=== PATIENT | male | born 1980 | race Caucasian/White ===

== ENCOUNTER → 2018-02-01 | Outpatient (CLI) | payer BC ==
[2018-02-01 15:22] LABS: ADD MAN DIFF? NO
[2018-02-01 15:27] LABS: BASO % 1 % (0-3); EOS # 0.1 x10^3/uL (0.0-0.7); EOS % 3 % (0-3); HEMATOCRIT 31.9 % (39.0-53.0); HEMOGLOBIN 10.8 g/dL (13.0-17.5); LYMPH # 2.6 x10^3/uL (1.0-4.8); LYMPH % 52 % (24-48); MEAN CORPUSCULAR HEMOGLOBIN 26 pg (25-35); MEAN CORPUSCULAR HGB CONC 34 g/dL (31-37); MEAN CORPUSCULAR VOLUME 75 fL (79-100); MONO # 0.5 x10^3/uL (0.0-1.1); MONO % 10 % (0-9); NEUT # 1.7 x10^3uL (1.8-7.7); NEUT % 35 % (31-73); PLATELET COUNT 191 x10^3/uL (140-400); RED BLOOD COUNT 4.24 x10^6/uL (4.30-5.70)
[2018-02-01 16:06] LABS: ALBUMIN 3.7 g/dL (3.4-5.0); ALBUMIN/GLOBULIN RATIO 1.1 (1.0-1.7); ALK PHOS 74 U/L (46-116); ALT (SGPT) 328 U/L (16-63); ANION GAP 10 (6-14); AST (SGOT) 99 U/L (15-37); BLOOD UREA NITROGEN 20 mg/dL (8-26); BUN/CREATININE RATIO 20 (6-20); CALCIUM 8.5 mg/dL (8.5-10.1); CARBON DIOXIDE 25 mmol/L (21-32); CHLORIDE 105 mmol/L (98-107); GFR 83.2; GLUCOSE 121 mg/dL (70-99); POTASSIUM 3.9 mmol/L (3.5-5.1); SODIUM 140 mmol/L (136-145); TOTAL BILIRUBIN 0.5 mg/dL (0.2-1.0); TOTAL PROTEIN 7.2 g/dL (6.4-8.2)
[2018-02-02 09:23] LABS: MRSA BY PCR Negative (Negative)
== END | disposition home or self-care (01) ==
LOC: SURGPAT 14:19
DX: Z01.818 Encounter for other preprocedural examination (principal); M51.26 Other intervertebral disc displacement, lumbar region
CPT/HCPCS: 36415; 80053; 85025; 87641

== ENCOUNTER → 2018-02-06 | Day surgery (SDC) | payer BC ==
[~2018-02-06] MED LIST: DESFLURANE > 120 MINUTES IH; DEXAMETHASONE SOD PHOS 20 MG/5 ML VIAL.; GLYCOPYRROLATE 1 MG/5 ML VIAL.; KETOROLAC 30 MG/ML INJ FOR OR. INJ; MORPHINE SULFATE 4 MG/ML DISP.SYRIN. IV; ONDANSETRON PF 4 MG/2 ML VIAL.; ONDANSETRON PF 4 MG/2 ML VIAL. IV; PHENYLEPHRINE 10 MG/ML VIAL.; PHENYLEPHRINE in 0.9% NACL PF 1 MG/10 ML SYRINGE. IV; PROCHLORPERAZINE 10 MG/2 ML VIAL. IV; PROPOFOL 20 ML IV; PROPOFOL 50 ML IV; REMIFENTANIL 2 MG VIAL. IV; ROCURONIUM 50 MG/5 ML VIAL.; ceFAZolin 2GM PREMIX 2 GM/50 ML BAG IV; fentaNYL PF VIAL 100 MCG/2 ML VIAL; fentaNYL PF VIAL 100 MCG/2 ML VIAL IV; traMADol 50 MG TABLET
[2018-02-06] MEDS: IV RINGERS,LACTATED 1000ML 1,000 ML IV (10:39)
[2018-02-06 10:49] LABS: AST (SGOT) 42 U/L (15-37)
[2018-02-06 10:49] LABS: ALT (SGPT) 155 U/L (16-63)
[2018-02-06] MEDS: BUPIVAC MPF-EPI 0.5%-1:200000 30 ML VIAL. INJ (12:58)
[2018-02-06] MEDS: KETOROLAC 60 MG/2 ML INJ FOR OR. (12:58)
[2018-02-06] MEDS: BACITRACIN 50,000 UNIT in IV NORMAL SALINE 1000ML BAG 1,000 ML IRR (12:58)
[2018-02-06] MEDS: GELATIN SPONGE SIZE 100. (12:58)
[2018-02-06] MEDS: THROMBIN TOPICAL 20,000 UNIT SPRAY.SYRN KIT TP (12:58)
[2018-02-06] MEDS: LIDOCAINE 1% PF 2 ML VIAL. ID (14:54)
[2018-02-06] MEDS: fentaNYL PF VIAL 100 MCG/2 ML VIAL IV (14:59)
[2018-02-06] MEDS: traMADol 50 MG TABLET PO (15:41)
== END | disposition home or self-care (01) ==
LOC: SURG 09:57
DX: M51.16 Intervertebral disc disorders with radiculopathy, lumbar region (principal); Z79.899 Other long term (current) drug therapy; Z72.89 Other problems related to lifestyle; K21.9 Gastro-esophageal reflux disease without esophagitis; K08.409 Partial loss of teeth, unspecified cause, unspecified class
CPT/HCPCS: 36415; 76000; 84450; 84460; 88304; 88311; 97162-GP; 97530-GP; A7015; G8978-CJ-GP; G8979-CJ-GP; G8980-CJ-GP; J0690; J1100; J1885; J2370; J2405; J2704; J3010; J3490; J7030; J7120

== ENCOUNTER → 2018-06-12 | Outpatient (CLI) | payer BC ==
[2018-02-06 15:42] VITALS: BP 125/86
[~2018-06-12] MED LIST changes: +ACET500T68 PO; +CYCL10TA2 PO; -DESFLURANE > 120 MINUTES IH; -DEXAMETHASONE SOD PHOS 20 MG/5 ML VIAL.; +DIAZ5TAB4 PO; +DOCU-109 PO; -GLYCOPYRROLATE 1 MG/5 ML VIAL.; +HYDR-971 PO; +IBUP-1027 PO; -KETOROLAC 30 MG/ML INJ FOR OR. INJ; -MORPHINE SULFATE 4 MG/ML DISP.SYRIN. IV; +OMEP40CA5 PO; -ONDANSETRON PF 4 MG/2 ML VIAL.; -ONDANSETRON PF 4 MG/2 ML VIAL. IV; +OXYC-323 PO; -PHENYLEPHRINE 10 MG/ML VIAL.; -PHENYLEPHRINE in 0.9% NACL PF 1 MG/10 ML SYRINGE. IV; -PROCHLORPERAZINE 10 MG/2 ML VIAL. IV; -PROPOFOL 20 ML IV; -PROPOFOL 50 ML IV; -REMIFENTANIL 2 MG VIAL. IV; -ROCURONIUM 50 MG/5 ML VIAL.; +TRAM50TA PO; -ceFAZolin 2GM PREMIX 2 GM/50 ML BAG IV; -fentaNYL PF VIAL 100 MCG/2 ML VIAL; -fentaNYL PF VIAL 100 MCG/2 ML VIAL IV; -traMADol 50 MG TABLET
[2018-06-12 14:56] LABS: BASO % 1 % (0-3); EOS # 0.3 x10^3/uL (0.0-0.7); EOS % 5 % (0-3); HEMATOCRIT 36.7 % (39.0-53.0); HEMOGLOBIN 12.4 g/dL (13.0-17.5); LYMPH # 2.6 x10^3/uL (1.0-4.8); LYMPH % 41 % (24-48); MEAN CORPUSCULAR HEMOGLOBIN 25 pg (25-35); MEAN CORPUSCULAR HGB CONC 34 g/dL (31-37); MEAN CORPUSCULAR VOLUME 73 fL (79-100); MONO # 0.5 x10^3/uL (0.0-1.1); MONO % 8 % (0-9); NEUT # 2.8 x10^3uL (1.8-7.7); NEUT % 46 % (31-73); PLATELET COUNT 246 x10^3/uL (140-400); RED BLOOD COUNT 5.04 x10^6/uL (4.30-5.70); RED CELL DISTRIBUTION WIDTH 18.2 % (11.5-14.5); WHITE BLOOD COUNT 6.2 x10^3/uL (4.0-11.0)
[2018-06-12 15:16] LABS: ALBUMIN 3.8 g/dL (3.4-5.0); ALBUMIN/GLOBULIN RATIO 1.1 (1.0-1.7); CALCIUM 8.6 mg/dL (8.5-10.1); CREATININE 1.2 mg/dL (0.7-1.3); GFR 67.1; POTASSIUM 3.9 mmol/L (3.5-5.1); TOTAL BILIRUBIN 0.3 mg/dL (0.2-1.0); TOTAL PROTEIN 7.3 g/dL (6.4-8.2)
== END | disposition home or self-care (01) ==
LOC: SURGPAT 14:14
PROVIDERS: ATTEND Neurological Surgery
DX: Z01.818 Encounter for other preprocedural examination (principal); M51.26 Other intervertebral disc displacement, lumbar region
CPT/HCPCS: 36415; 80053; 85025; 87641

== ENCOUNTER 2018-06-15 06:45 | Day surgery (SDC) | payer BC ==
--- NOTE | 2018-06-14 15:28 | PREOP HP ---
DATE OF SERVICE: Yoan Dailey dictating for Dr. Navi Centeno. DATE OF SURGERY: 06/15/2018. HISTORY OF PRESENT ILLNESS: The patient is a 38-year-old who underwent surgery in February for herniated lumbar disk at L5-S1 on the right. He did well from that surgery. His pain resolved both in his back and his leg. Then, a few months ago, he developed an episode of severe back pain, which responded to Medrol Dosepak. He was again pain free and did well until several days ago after lifting a laundry basket, he developed, extremely severe lower back pain and pain which radiated to the right buttock. He noted pain in his right inguinal region as well. He was unable to walk because the pain was so severe, and he was seen in the Emergency Room and given Percocet and Valium. An MRI scan has been done. He did not notice significant pain in his legs, although he tries to lift his right leg, he develops excruciating pain in his back and buttock. He does not notice weakness in his lower extremities. He does have no numbness in his legs or feet. PAST MEDICAL HISTORY: None noted. PAST SURGICAL HISTORY: Lumbar microdiskectomy L5-S1 in 02/2018. FAMILY HISTORY: Noncontributory. 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 . Rarely exercises. Denies substance abuse. Denies tobacco use. Drinks alcohol 1-2 times per week. Drinks coffee and soda daily. ALLERGIES: No known drug allergies. CURRENT MEDICATIONS: Medrol, omeprazole, ibuprofen, prednisone, Percocet, Valium. REVIEW OF SYSTEMS: A 12-point review of systems was obtained and is noncontributory except for that mentioned above. PHYSICAL EXAMINATION: NEUROSURGERY EXAMINATION: GENERAL APPEARANCE: Alert, pleasant, in mild distress because of back pain. HEAD: Normocephalic and atraumatic. SKIN: Warm and dry. BACK: Well-healed lumbar incision. MUSCULOSKELETAL: Lumbar paraspinal muscle bulk is normal, restricted range of motion of the lumbar spine. Normal range of motion of the lower extremities bilaterally. Palpation of the back was not associated with severe tenderness. There is moderate tenderness of lower lumbar spine to the right side of midline. EXTREMITIES: No clubbing, cyanosis or edema. NEUROLOGIC: Alert and oriented x 3, normal recent and remote memory, strength 5/5 in upper and lower extremities bilaterally. On sensory testing, it is intact to light touch in the upper and lower extremity bilaterally, and reflexes were 1+ and symmetric. Straight leg raising on the right at 20 degrees was associated with severe back and right buttock pain, relieved by Lasegue maneuver. Straight leg raising on the left at about 40 degrees, was associated with severe right buttock pain and right-sided back pain, antalgic gait. IMAGING: Reviewed. I reviewed a lumbar MRI scan from yesterday. On that study, the abnormalities are seen at L5-S1 with a nonenhancing moderate sized broad based right focal disk protrusion which is compressing on the right S1 nerve root. ASSESSMENT: Intervertebral disk disorder with radiculopathy, lumbosacral region. PLAN: I spoke with the patient about treatment options. He is experiencing severe pain requiring Percocet and Valium. He had difficulty with virtually any activity. There is a recurrent disk herniation with nerve root compression on the right L5-S1. I discussed with him treatment options, which included physical therapy, epidural steroid injections and reoperation. At this point, because of the severe pain, he would strongly like to go ahead with lumbar microsurgery. He understands the surgery and the risks. I explained to him at this point that I would perform a simple micro lumbar decompressive surgery and non instrumented fusion. He understands. He would like to go ahead. We will make the arrangements. NAVI CENTENO MD DR: CALEB/troy JOB#: [id number] / [id number]
[~2018-06-15] VITALS: Ht 182.9 cm; Wt 95.3 kg
[~2018-06-15 06:45] MED LIST changes: +BACITRACIN 50,000 UNIT in IV NORMAL SALINE 1000ML BAG 1,000 ML IRR ONE; +BUPIVAC MPF-EPI 0.5%-1:200000 30 ML VIAL. ONE; -DOCU-109 PO; +GELATIN SPONGE SIZE 100. ONE; -HYDR-971 PO; +KETOROLAC 60 MG/2 ML INJ FOR OR. ONE; +THROMBIN TOPICAL 20,000 UNIT SPRAY.SYRN KIT TP ONE
[2018-06-15] MEDS ORDERED: ONDANSETRON PF 4 MG/2 ML VIAL. IV PRN (07:00)
[2018-06-15] MEDS ORDERED: LIDOCAINE 1% PF 2 ML VIAL. ID PRN (07:00)
[2018-06-15] MEDS ORDERED: fentaNYL PF VIAL 100 MCG/2 ML VIAL IV PRN (07:00)
[2018-06-15] MEDS ORDERED: PROCHLORPERAZINE 10 MG/2 ML VIAL. IV PRN (07:00)
[2018-06-15] MEDS ORDERED: MORPHINE SULFATE 2 MG/ML VIAL. IV PRN (07:00)
[2018-06-15] MEDS ORDERED: HYDROmorphone 2 MG/ML VIAL IV PRN (07:00)
[2018-06-15] MEDS: IV RINGERS,LACTATED 1000ML 1,000 ML IV SCH ×2 (07:44→11:27)
[2018-06-15] MEDS ORDERED: PROPOFOL 20 ML IV ONE (08:08)
[2018-06-15] MEDS ORDERED: ONDANSETRON PF 4 MG/2 ML VIAL. ONE (08:08)
[2018-06-15] MEDS ORDERED: ROCURONIUM 50 MG/5 ML VIAL. ONE (08:08)
[2018-06-15] MEDS ORDERED: DEXAMETHASONE SOD PHOS 20 MG/5 ML VIAL. ONE (08:08)
[2018-06-15] MEDS ORDERED: PHENYLEPHRINE 10 MG/ML VIAL. ONE (08:08)
[2018-06-15] MEDS ORDERED: MIDAZOLAM HCL/PF 2 MG/2 ML VIAL. ONE (08:08)
[2018-06-15] MEDS ORDERED: PROPOFOL 50 ML IV ONE ×2 (08:08→09:55)
[2018-06-15] MEDS ORDERED: REMIFENTANIL 2 MG VIAL. IV ONE (08:09)
[2018-06-15] MEDS ORDERED: 0.9 % SODIUM CHLORIDE 20 ML VIAL. IJ ONE ×2 (08:09)
[2018-06-15] MEDS ORDERED: DESFLURANE > 120 MINUTES IH ONE (08:28)
[2018-06-15] MEDS ORDERED: GLYCOPYRROLATE 1 MG/5 ML VIAL. ONE ×2 (09:08→09:11)
[2018-06-15] MEDS ORDERED: NEOSTIGMINE METHYLSULFATE 5 MG/5 ML SYRINGE. ONE (11:09)
--- NOTE | 2018-06-15 11:16 | DISCH ---
DISCHARGE INSTRUCTIONS Condition on Discharge Condition on Discharge: Stable Activity After Discharge Activity Instructions for Disc: Activity as tolerated, Avoid exertion Other activity instructions: no driving for a week Bathing Instructions: Shower-keep dressing dry Lifting Instructions after Dis: No heavy lifting, No pulling or pushing, Do not lift >10 pounds Weight Bearing Status after Di: No restrictions Diet after Discharge Additional Diet Restrictions: Resume previous diet Wound Incision Care Wound/Incision Care: Ice to area for comfort Other wound/incision instructi: may remove dressing in 48 hrs if dry then phoebe bojorquez shower, no soaking Contacting the DRNico after DC Call your doctor for: Concerns you may have Follow-Up Follow up with: Dr. Centeno's nurse in 2 weeks [phone] DERIK CENTENO MD Jun 15, 2018 11:16
[2018-06-15] MEDS ORDERED: DOCU-109 PO (11:18)
[2018-06-15] MEDS ORDERED: HYDR-971 PO (11:18)
[2018-06-15] MEDS: fentaNYL PF VIAL 100 MCG/2 ML VIAL IV PRN ×3 (11:35→12:47)
--- NOTE | 2018-06-15 12:05 | OP ---
DATE OF SURGERY: 06/15/2018 PREOPERATIVE DIAGNOSIS: Herniated lumbar disk, L5-S1 right with right lumbar radiculopathy. POSTOPERATIVE DIAGNOSIS: Herniated lumbar disk, L5-S1 right with right lumbar radiculopathy. OPERATION PERFORMED: Hemilaminotomy and microdiskectomy L5-S1, right reop. The operation was done with EMG monitoring, fluoroscopy, microscopic dissection, SSEP monitoring. [employer] MAINFRAME SYSTEMS PROGRAMMER: CONNIE Juan assisted with surgery. She assisted with the decompression, microdiskectomy as well as the closure. OPERATIVE INDICATIONS: The patient is a very pleasant 38-year-old male who several months ago underwent lumbar microsurgery for herniated disk at L5-S1 on the right and some significant radiculopathy. He improved and developed an episode of severe back pain, which resolved and then an episode of very severe back pain along with pain, which would radiate into his right leg. On imaging studies, there was recurrent disk herniation at L5-S1 on the right and I recommended lumbar microsurgery. I spoke with him about the surgery, the risks, technique and the expected postoperative course. We carefully discussed the pros and cons of simple microdiskectomy versus instrumentation and my feeling was that at this age, the best approach would be to try to avoid instrumentation, although I explained that it would be possible in the future at any time, he can develop further recurrence and required a lumbar instrumented fusion. I spoke about the surgery for simple lumbar microdisk, the technique, the expected postoperative course. He understood he wished to go ahead. DESCRIPTION OF PROCEDURE: Following general endotracheal anesthesia, the patient was positioned prone on the Levi table. Lumbar region prepped and draped in standard fashion. BAUTISTA hose and AV impulse boots were applied for DVT prophylaxis. Microscope was draped. Fluoroscopy was draped and brought in the field. Monitoring was established. Ancef 2 grams was given less than an hour before surgery. I made a midline incision opening his previous incision. I dissected down skin and subcutaneous tissue, reflected the paraspinal muscles, placed a [place] micro disk distractor, confirmed my position fluoroscopically. I brought in the high speed air drill and enlarged his previous hemilaminotomy, also using the large curette to expose those edges. I used the curved [place] [employer] to further outline the edges and gently used that as a medial shield. While I drilled and enlarged the hemilaminotomy superolaterally and laterally, I drilled down and entered into the space just above the pedicle and worked down to the pedicle and then carefully worked around the medial edge of the pedicle enlarging his previous foraminotomy. I trimmed away the bone in this region extending medially to the dura. I had an excellent exposure of the disk, the dura, the S1 root. I developed a plane with a blunt hook and placed a [place] microdisk retractor. There was considerable pressure and very little room for any retraction, but I incised the annulus and ligament laterally and with a micropituitary, I moved a few disk fragments, which then allowed more mobility of the nerve. I entered into the disk space, into the subligamentous space and gently removed multiple small fragments of disk. I then worked more into the disk space and removed a very large disk fragment, which appeared to be partially occupying the subligamentous space as well as within the disk. When this was removed, the entire region was very well decompressed. I further worked and removed a few more small pieces of disk, but whole of the region was excellently decompressed. I did explore carefully. There were no retained fragments. The root was very free. I irrigated copiously. Hemostasis was excellent. I used small amounts of bone wax during the case as well as a bipolar where necessary. I irrigated copiously. I closed the fascia, subcutaneous tissue and all with absorbable sutures and the skin was closed with a 4-0 subcuticular stitch. The operation went very well. The patient awakened uneventfully. I was quite pleased with the surgery. DERIK CENTENO MD DR: CALEB/troy JOB#: [id number] / [id number]
[2018-06-15] MEDS ORDERED: oxyCODONE/APAP 5/325 1 TAB TABLET PO ONE (12:30)
[2018-06-15 13:03] VITALS: BP 132/82
--- NOTE | 2018-06-19 10:10 | PATHOLOGY ---
[facility] Accession Number: [id number] . 01 Material submitted: . LUMBAR DISC L5-S1 . 01 Clinical history: . Lumbar recurrent herniated disc . 02 Diagnosis: Segments of fibrocartilaginous and skeletal muscle tissue and bone, lumbar disc and decompression: - Degenerative changes of fibrocartilaginous tissue with focal bone remodeling. . (JPM/at;06/19/2018) QTA/06/19/2018 . 02 Comment: There is no evidence of an acute inflammatory process or malignancy. . 02 Electronically signed: . Brady Stokes MD, Pathologist NPI- [id number] . 01 Gross description: . Received in formalin labeled "Arnaud Medina, lumbar disc and decompression," are several pieces of glistening, fibrous tissue measuring 4.3 x 2.5 x 0.8 cm in aggregate dimensions, containing small fragments of possible bone. The tissue submitted representatively in cassette A1, following decalcification. (TSD; 06/15/2018) TOB/TOB . 02 Pathologist provided ICD-10: M51.36 . 02 CPT . 650777, 585300 Specimen Comment: A courtesy copy of this report has been sent to Specimen Comment: [phone], . Specimen Comment: Report sent to / DR WEI Performed at: 01 [facility] [address], [place] [id number] MD Rao Valencia MD Phone: [phone] Performed at: [facility] [address] [place], [place] [id number] MD Brady Stokes MD Phone: [phone]
== END 2018-06-15 14:10 | disposition home or self-care (01) ==
LOC: SURG 06:45
PROVIDERS: ATTEND Neurological Surgery
DX: M51.17 Intervertebral disc disorders with radiculopathy, lumbosacral region (principal); Z98.890 Other specified postprocedural states; Z72.89 Other problems related to lifestyle; Z79.899 Other long term (current) drug therapy
CPT/HCPCS: 63042; 97162; A7015; G8978; G8979; G8980; J0690; J0780; J1100; J1885; J2250; J2405; J2704; J2710; J3010; J3490; J7030; J7120; 76000; 88304; 88311